=== PATIENT | male | born 1940 | race Caucasian/White ===

== ENCOUNTER 2016-05-15 13:28 | Inpatient (IN) | payer MEDICARE ==
[~2016-05-15] VITALS: Ht 177.8 cm; Wt 119.5 kg
[~2016-05-15 13:28] MED LIST: ALBU8.5H5 INH; ASCO500T8 PO; ASPI-496 PO; CALCIUM PO; CHOL20003 PO; CITA10TA8 PO; CLOB15CR19 TP; CYAN10005 PO; FINA5TAB4 PO; FLUT1DIS IH; GABA100C8 PO; INSU100I11 SC; INSU100I13 SC; INSU300I SC; LACT1CAP37 PO; LORA0.5T PO; LOSA25TA5 PO; MAGNESIUM PO; METAMUCIL PO; METO5TAB2 PO; MOME17SP NS; MULT-658 PO; MYCOLOG CREAM HOMETP; ONDA4TAB13 SL; OXYC-302 PO; RIVA20TA PO; ROSU40TA PO; SULF1TAB23 PO; TADA20TA PO; TAMS0.4C2 PO
[2016-05-15] MEDS ORDERED: LACTATED RINGERS 1,000 ML IV SCH (13:41)
[2016-05-15 13:46] VITALS: BP 147/83
[2016-05-15] MEDS ORDERED: LIDOCAINE 1%, 2ML ONE (13:54)
[2016-05-15] MEDS ORDERED: VANCOMYCIN 1,000 MG ONE (13:56)
[2016-05-15] MEDS ORDERED: TRANEXAMIC ACID 100 MG/ML, 10ML ONE (13:56)
[2016-05-15] MEDS ORDERED: CEFAZOLIN 1,000 MG ONE ×2 (13:57→15:34)
[2016-05-15] MEDS ORDERED: PLEASE ENTER HEIGHT AND WEIGHT MC SCH (14:00)
[2016-05-15] MEDS ORDERED: VANCOMYCIN PER PHARMACY MC PRN (14:00)
[2016-05-15] MEDS ORDERED: ASCO500T12 PO (14:05)
[2016-05-15] MEDS ORDERED: CYAN250013 PO (14:05)
[2016-05-15] MEDS ORDERED: CALC1TAB4 PO (14:05)
[2016-05-15] MEDS ORDERED: CHOL2000 PO (14:05)
[2016-05-15] MEDS ORDERED: UBID100C24 PO (14:06)
[2016-05-15] MEDS ORDERED: VANCOMYCIN 2,200 MG in SODIUM CHLORIDE 0.9% 500 ML IV ONE (14:30)
[2016-05-15] MEDS ORDERED: SCOPOLAMINE PATCH, 1.5MG PATCH.TD72 TD ONE (15:17)
[2016-05-15] MEDS ORDERED: ROCURONIUM 10 MG/ML ONE (15:34)
[2016-05-15] MEDS ORDERED: SUCCINYLCHOLINE 20 MG/ML, 10ML ONE (15:34)
[2016-05-15] MEDS ORDERED: DEXAMETHASONE 4 MG/ML, 5ML ONE (15:34)
[2016-05-15] MEDS ORDERED: PHENYLEPHRINE 10 MG/ML ONE (15:34)
[2016-05-15] MEDS ORDERED: ONDANSETRON 2MG/ML, 2ML ONE (15:34)
[2016-05-15] MEDS ORDERED: PROPOFOL 10 MG/ML, 20ML ONE (15:34)
[2016-05-15] MEDS ORDERED: hydrALAzine 20 MG/ML, 1ML IV PRN (16:30)
[2016-05-15] MEDS ORDERED: FENTANYL PF 100 MCG/2ML IV PRN (16:30)
[2016-05-15] MEDS ORDERED: OXYcodone 5 MG/5 ML ORAL.SOL UDC PO PRN (16:30)
[2016-05-15] MEDS ORDERED: ACETAMINOPHEN 325 MG TABLET PO PRN (16:30)
[2016-05-15] MEDS ORDERED: HYDROmorphone 1 MG/ML, 1ML IV PRN ×2 (16:30→17:30)
[2016-05-15] MEDS ORDERED: LABETALOL 5MG/ML, 20ML IV PRN (16:30)
[2016-05-15] MEDS ORDERED: ONDANSETRON 2MG/ML, 2ML IVPush PRN (16:30)
[2016-05-15] MEDS ORDERED: MIDAZOLAM 1 MG/ML, 2ML IV PRN (16:30)
[2016-05-15] MEDS ORDERED: MEPERIDINE/PF 25MG/0.5ML IVPush PRN (16:30)
[2016-05-15] MEDS ORDERED: PROMETHAZINE 25 MG/ML, 1ML IV PRN (16:30)
[2016-05-15] MEDS ORDERED: ALBUTEROL/IPRATROPIUM 2.5MG/0.5MG, 3 ML NPPB PRN (16:30)
[2016-05-15] MEDS ORDERED: MAGNESIUM HYDROXIDE 8%, 30ML UDC PO PRN (17:30)
[2016-05-15] MEDS ORDERED: METOCLOPRAMIDE 10MG TABLET PO PRN (17:30)
[2016-05-15] MEDS ORDERED: ALUMINUM/MAG/SIMETHICONE 30 ML UDC PO PRN (17:30)
[2016-05-15] MEDS ORDERED: PROMETHAZINE 12.5 MG SUPP PR PRN (17:30)
[2016-05-15] MEDS ORDERED: DIPHENHYDRAMINE 50 MG CAPSULE PO PRN (17:30)
[2016-05-15] MEDS ORDERED: BISACODYL 10 MG SUPP PR PRN (17:30)
[2016-05-15] MEDS: ACETAMINOPHEN 650 MG/20.3 ML UDC PO SCH ×2 (17:30→23:20)
[2016-05-15] MEDS ORDERED: LORazepam 0.5MG TABLET PO PRN (17:30)
[2016-05-15] MEDS ORDERED: SENNA/DOCUSATE TABLET PO PRN (17:30)
[2016-05-15] MEDS ORDERED: ALBUTEROL SULFATE 200 PUFFS/8.5 GR INH INH PRN (17:30)
[2016-05-15] MEDS ORDERED: SCOPOLAMINE PATCH, 1.5MG PATCH.TD72 TD SCH (17:30)
[2016-05-15] MEDS ORDERED: ONDANSETRON 2MG/ML, 2ML IV PRN (17:30)
[2016-05-15] MEDS ORDERED: ONDANSETRON 4 MG TABLET PO PRN (17:30)
[2016-05-15] MEDS ORDERED: OXYcodone 5 MG/5 ML ORAL.SOL UDC ONE (17:34)
[2016-05-15] MEDS ORDERED: ACETAMINOPHEN 650 MG/20.3 ML UDC ONE (17:34)
[2016-05-15] MEDS ORDERED: PROMETHAZINE 25 MG/ML, 1ML ONE (17:44)
[2016-05-15] MEDS ORDERED: TRANEXAMIC ACID 1,500 MG in SODIUM CHLORIDE 0.9% 100 ML IVPB ONE (17:45)
[2016-05-15] MEDS: INSULIN GLARGINE HUM REC ANLOG 100 UNIT SC SCH (21:00)
[2016-05-15] MEDS: SODIUM CHLORIDE 0.9% 1,000 ML IV SCH (21:23)
[2016-05-15] MEDS: OXYcodone IR 5MG TABLET PO PRN (21:57)
[2016-05-15] MEDS: GABAPENTIN 100 MG CAPSULE PO SCH (21:57)
[2016-05-15] MEDS: DOCUSATE 100 MG CAPSULE PO SCH (21:57)
[2016-05-15] MEDS: INSULIN REGULAR 100 UNITS/ML, 3ML VIAL SQ-INSULIN SCH (23:08)
[2016-05-15] MEDS: CEFAZOLIN PMX 2GM/100ML 100 ML IVPB SCH (23:14)
[2016-05-16 00:50] VITALS: BP 117/60
[2016-05-16] MEDS: SODIUM CHLORIDE 0.9% 1,000 ML IV SCH ×3 (02:33→14:10)
[2016-05-16] MEDS: OXYcodone IR 5MG TABLET PO PRN ×4 (02:36→16:17)
[2016-05-16 04:37] VITALS: BP 129/70
[2016-05-16] MEDS: RIVAROXABAN 10 MG TABLET PO SCH (05:46)
[2016-05-16] MEDS: ACETAMINOPHEN 650 MG/20.3 ML UDC PO SCH ×3 (05:46→17:37)
[2016-05-16] MEDS ORDERED: DEXAMETHASONE 4 MG/ML, 1ML IVPush SCH (06:00)
[2016-05-16 06:02] LABS: HEMOGLOBIN 12.3 g/dL (13.7-18.0)
[2016-05-16] MEDS: CEFAZOLIN PMX 2GM/100ML 100 ML IVPB SCH (06:46)
[2016-05-16 07:05] VITALS: BP 148/80
[2016-05-16] MEDS: INSULIN LISPRO 35 UNIT SC SCH ×3 (07:43→16:11)
[2016-05-16] MEDS: ROSUVASTATIN CALCIUM 40 MG HOMEMEDPO SCH (07:44)
[2016-05-16] MEDS: MOMETASONE FUROATE NS SCH (07:44)
[2016-05-16] MEDS: CITALOPRAM 10 MG TABLET PO SCH (08:02)
[2016-05-16] MEDS: INSULIN REGULAR 100 UNITS/ML, 3ML VIAL SQ-INSULIN SCH ×4 (08:02→21:05)
[2016-05-16] MEDS: DOCUSATE 100 MG CAPSULE PO SCH ×2 (08:02→20:56)
[2016-05-16] MEDS: MULTIVITAMINS/MINERALS TABLET PO SCH (08:02)
[2016-05-16] MEDS: TAMSULOSIN 0.4 MG CAP.ER.24H PO SCH (08:02)
[2016-05-16] MEDS ORDERED: LOSARTAN 25MG TABLET PO SCH (09:00)
[2016-05-16 13:20] VITALS: BP 135/76
[2016-05-16 19:41] VITALS: BP 121/75
[2016-05-16] MEDS: GABAPENTIN 100 MG CAPSULE PO SCH (20:56)
[2016-05-16] MEDS: LOSARTAN 25MG TABLET PO SCH (20:56)
[2016-05-16] MEDS: INSULIN GLARGINE HUM REC ANLOG 100 UNIT SC SCH (21:00)
[2016-05-17] MEDS: ACETAMINOPHEN 650 MG/20.3 ML UDC PO SCH ×5 (00:03→23:30)
[2016-05-17 01:08] VITALS: BP 113/72
[2016-05-17] MEDS: SODIUM CHLORIDE 0.9% 1,000 ML IV SCH ×3 (01:28→17:28)
[2016-05-17] MEDS: OXYcodone IR 5MG TABLET PO PRN ×3 (01:43→12:29)
[2016-05-17 05:28] LABS: HEMOGLOBIN 11.8 g/dL (13.7-18.0)
[2016-05-17] MEDS: RIVAROXABAN 10 MG TABLET PO SCH (05:38)
[2016-05-17] MEDS: INSULIN LISPRO 35 UNIT SC SCH ×3 (07:00→16:00)
[2016-05-17 07:07] VITALS: BP 122/74
[2016-05-17] MEDS: INSULIN REGULAR 100 UNITS/ML, 3ML VIAL SQ-INSULIN SCH ×4 (07:41→20:42)
[2016-05-17] MEDS: DOCUSATE 100 MG CAPSULE PO SCH ×2 (07:43→20:43)
[2016-05-17] MEDS: CITALOPRAM 10 MG TABLET PO SCH (07:43)
[2016-05-17] MEDS: MULTIVITAMINS/MINERALS TABLET PO SCH (07:44)
[2016-05-17] MEDS: MOMETASONE FUROATE NS SCH (07:44)
[2016-05-17] MEDS: ROSUVASTATIN CALCIUM 40 MG HOMEMEDPO SCH (07:45)
[2016-05-17] MEDS: TAMSULOSIN 0.4 MG CAP.ER.24H PO SCH ×2 (09:00→12:29)
[2016-05-17] MEDS ORDERED: FINASTERIDE 5 MG TABLET PO SCH (09:00)
[2016-05-17 13:43] VITALS: BP 105/68
[2016-05-17 15:07] LABS: HEMOGLOBIN 11.3 g/dL (13.7-18.0)
[2016-05-17 15:11] LABS: ABG COLLECTION SITE LEFT RADIAL; COLLATERAL CIRCULATION TESTING NORMAL
[2016-05-17 15:21] LABS: BLOOD UREA NITROGEN 34 mg/dL (7-18)
[2016-05-17 15:27] LABS: IS PT STATUS REG ER OR PRE ER? NO
[2016-05-17] MEDS ORDERED: OMNIPAQUE 350 MG/ML, 100ML BOTTLE ONE (17:27)
[2016-05-17] MEDS ORDERED: FUROSEMIDE 20 MG/2 ML IV ONE (18:30)
[2016-05-17 20:00] VITALS: BP 110/68
[2016-05-17] MEDS: LOSARTAN 25MG TABLET PO SCH (20:43)
[2016-05-17] MEDS: GABAPENTIN 100 MG CAPSULE PO SCH (20:43)
[2016-05-17] MEDS: INSULIN GLARGINE HUM REC ANLOG 100 UNIT SC SCH (21:00)
[2016-05-17 23:25] LABS: IS PT STATUS REG ER OR PRE ER? NO
[2016-05-18 03:50] VITALS: BP 127/59
[2016-05-18] MEDS: ACETAMINOPHEN 650 MG/20.3 ML UDC PO SCH ×2 (05:30→11:21)
[2016-05-18 06:19] LABS: HEMOGLOBIN 11.2 g/dL (13.7-18.0)
[2016-05-18 06:22] LABS: BLOOD UREA NITROGEN 41 mg/dL (7-18)
[2016-05-18 06:23] LABS: IS PT STATUS REG ER OR PRE ER? NO
[2016-05-18] MEDS: RIVAROXABAN 10 MG TABLET PO SCH (06:29)
[2016-05-18] MEDS: INSULIN LISPRO 35 UNIT SC SCH ×2 (07:00→10:55)
[2016-05-18 07:19] VITALS: BP 104/66
[2016-05-18] MEDS: MOMETASONE FUROATE NS SCH (09:00)
[2016-05-18] MEDS ORDERED: FLUTICASONE/VILANTEROL 200-25MCG/INH INH SCH (09:00)
[2016-05-18] MEDS: ROSUVASTATIN CALCIUM 40 MG HOMEMEDPO SCH (09:00)
[2016-05-18] MEDS: INSULIN REGULAR 100 UNITS/ML, 3ML VIAL SQ-INSULIN SCH ×2 (09:41→11:19)
[2016-05-18] MEDS: DOCUSATE 100 MG CAPSULE PO SCH (09:42)
[2016-05-18] MEDS: LOSARTAN 25MG TABLET PO SCH (09:42)
[2016-05-18] MEDS: CITALOPRAM 10 MG TABLET PO SCH (09:42)
[2016-05-18] MEDS: MULTIVITAMINS/MINERALS TABLET PO SCH (09:42)
[2016-05-18] MEDS: TAMSULOSIN 0.4 MG CAP.ER.24H PO SCH (09:42)
[2016-05-18] MEDS ORDERED: ACETAMINOPHEN 325 MG TABLET ONE (11:15)
[2016-05-18 13:20] VITALS: BP 102/48
== END 2016-05-18 15:51 | DRG 469 ==
LOC: ORIP 13:28 → 4NOR 18:32 → 4WST 05-17 19:53
PROVIDERS: ADMIT Orthopaedic Surgery Adult Reconstructive Orthopaedic Surgery; ATTEND Orthopaedic Surgery Adult Reconstructive Orthopaedic Surgery
PROC: 0SR903A Replacement of Right Hip Joint with Ceramic Synthetic Substitute, Uncemented, Open Approach (ICD-10-PCS; principal; 2016-05-15 15:30)
DX: M16.11 Unilateral primary osteoarthritis, right hip (principal); J96.01 Acute respiratory failure with hypoxia; I50.23 Acute on chronic systolic (congestive) heart failure; E87.1 Hypo-osmolality and hyponatremia; J98.11 Atelectasis; I12.9 Hypertensive chronic kidney disease with stage 1 through stage 4 chronic kidney disease, or unspecified chronic kidney disease; D64.9 Anemia, unspecified; D72.829 Elevated white blood cell count, unspecified; E11.22 Type 2 diabetes mellitus with diabetic chronic kidney disease; Z96.652 Presence of left artificial knee joint; J45.909 Unspecified asthma, uncomplicated; E11.65 Type 2 diabetes mellitus with hyperglycemia; E78.5 Hyperlipidemia, unspecified; I25.9 Chronic ischemic heart disease, unspecified; I35.0 Nonrheumatic aortic (valve) stenosis; N18.2 Chronic kidney disease, stage 2 (mild); Z79.01 Long term (current) use of anticoagulants; Z86.711 Personal history of pulmonary embolism; Z79.899 Other long term (current) drug therapy; Z88.0 Allergy status to penicillin; E66.01 Morbid (severe) obesity due to excess calories; F32.9 Major depressive disorder, single episode, unspecified
CPT/HCPCS: 36415; 36600; 71010; 71275; 80048; 82803; 82962; 84484; 85014; 85018; 85025; 86850; 86900; 93005; C1713; J0690; J1100; J1170; J1815; J2250; J2405; J2550; J2704; J3010; J3370; Q9967; C1776; J0330; J1940; J2370; J7030; J7040; J7120

== ENCOUNTER 2018-10-27 14:32 | Outpatient (CLI) | payer MEDICARE | END 2018-10-27 23:59 | disposition home or self-care (01) | LOC: CVU 14:32 | PROVIDERS: ATTEND Internal Medicine Cardiovascular Disease | DX: I08.3 Combined rheumatic disorders of mitral, aortic and tricuspid valves (principal); I11.9 Hypertensive heart disease without heart failure; E78.5 Hyperlipidemia, unspecified; I25.2 Old myocardial infarction | CPT/HCPCS: 93306 ==

== ENCOUNTER → 2019-11-12 | Outpatient (CLI) | payer MEDICARE ==
[~2019-11-12] MED LIST changes: +ASCO500T93 PO; +CALC1TAB4 PO; +CHOL2000 PO; -CHOL20003 PO; +CYAN-27 PO; -CYAN10005 PO; +CYAN250013 PO; +GABA-826 PO; -GABA100C8 PO; +LOSA25TA25 PO; -LOSA25TA5 PO; +UBID100C24 PO
== END | disposition home or self-care (01) ==
LOC: CFH 10:50
PROVIDERS: ATTEND Internal Medicine Cardiovascular Disease
DX: I11.9 Hypertensive heart disease without heart failure (principal); I35.0 Nonrheumatic aortic (valve) stenosis
CPT/HCPCS: 93306

== ENCOUNTER 2020-11-03 12:42 | Outpatient (CLI) | payer MEDICARE ==
[~2020-11-03 12:42] MED LIST changes: +ASPI81TA45 PO; +CITA10TA4 PO; +EMPA25TA PO; +ICOS1CAP PO; +KETO15CR17 TP; -LACT1CAP37 PO; +LACT1CAP47 PO; +LEVO25TA4 PO; +LISI5TAB7 PO; +METO25TA91 PO; +Magnesium PO; -OXYC-302 PO; +OXYC1TAB14 PO; +TICA90TA PO; +TORS5TAB4 PO; +TRIA15CR61 TP
== END 2020-11-03 23:59 | disposition home or self-care (01) ==
LOC: CVU 12:42 → RAD 23:59
PROVIDERS: ATTEND Internal Medicine Cardiovascular Disease
DX: I65.23 Occlusion and stenosis of bilateral carotid arteries (principal); K57.30 Diverticulosis of large intestine without perforation or abscess without bleeding; I25.10 Atherosclerotic heart disease of native coronary artery without angina pectoris; I50.41 Acute combined systolic (congestive) and diastolic (congestive) heart failure; I35.8 Other nonrheumatic aortic valve disorders; I31.3 Pericardial effusion (noninflammatory); J43.2 Centrilobular emphysema; K86.89 Other specified diseases of pancreas; N28.1 Cyst of kidney, acquired
CPT/HCPCS: 71250; 74176; 93880

== ENCOUNTER 2020-11-08 07:30 | Inpatient (IN) | payer MEDICARE ==
[~2020-11-08] VITALS: Ht 180.3 cm; Wt 75.0 kg
[~2020-11-08 07:30] MED LIST changes: +OXYC1TAB12 PO; -OXYC1TAB14 PO
[2020-11-15] MEDS ORDERED: ONDANSETRON 2MG/ML, 2ML IV PRN (06:30)
[2020-11-15 06:53] LABS: BASOPHILS % (AUTO) 1 % (0-1); EOSINOPHILS % (AUTO) 2 % (1-7); LYMPHOCYTES % (AUTO) 19 % (22-44); MEAN CORPUSCULAR HEMOGLOBIN 32.8 pg (27.5-34.5); MEAN CORPUSCULAR HGB CONC 33.8 g/dL (33.2-36.2); MONOCYTES % (AUTO) 8 % (2-9); NEUTROPHILS % (AUTO) 71 % (42-75); PLATELET COUNT 227 x10^3/uL (130-400); RED BLOOD COUNT 3.42 x10^6/uL (4.38-5.82); RED CELL DISTRIBUTION WIDTH 14.5 % (9.4-14.8)
[2020-11-15] MEDS ORDERED: RIVA10TA2 PO (06:55)
[2020-11-15] MEDS ORDERED: ROSU40TA PO (06:58)
[2020-11-15] MEDS ORDERED: ICOS1CAP PO (06:59)
[2020-11-15 07:03] VITALS: BP 99/53
[2020-11-15 07:05] LABS: ALANINE AMINOTRANSFERASE 46 U/L (12-78); ALBUMIN 2.8 g/dL (3.4-5.0); ANION GAP 3 mmol/L (5-15); CHLORIDE 111 mmol/L (98-107)
[2020-11-15 07:07] LABS: INTERNATIONAL NORMALIZED RATIO 1.12 (0.93-1.1); PROTHROMBIN TIME 11.9 Seconds (9.6-11.5)
[2020-11-15 07:08] LABS: ALKALINE PHOSPHATASE 84 U/L (45-117); BILIRUBIN,TOTAL 0.7 mg/dL (0.2-1.0); CREATININE 1.42 mg/dL (0.7-1.3); TOTAL PROTEIN 6.5 g/dL (6.4-8.2)
[2020-11-15] MEDS ORDERED: PROTAMINE SULFATE 10 MG/ML, 5ML ONE (07:12)
[2020-11-15] MEDS ORDERED: SUCCINYLCHOLINE 20 MG/ML, 10ML ONE (08:32)
[2020-11-15] MEDS ORDERED: EPINEPHRINE 1 MG/ML, 1ML ONE (08:32)
[2020-11-15] MEDS ORDERED: FENTANYL PF 250 MCG/5ML ONE (08:51)
[2020-11-15] MEDS ORDERED: ROCURONIUM 10MG/ML,5ML ONE (10:14)
[2020-11-15] MEDS ORDERED: HEPARIN 1,000 UNITS/ML, 10ML ONE (10:14)
[2020-11-15] MEDS ORDERED: CEFAZOLIN 1,000 MG ONE ×2 (10:14)
[2020-11-15] MEDS ORDERED: PROPOFOL 10 MG/ML, 20ML ONE (10:14)
[2020-11-15] MEDS ORDERED: ONDANSETRON 2MG/ML, 2ML ONE (10:14)
[2020-11-15] MEDS ORDERED: ACETAMINOPHEN 325 MG TABLET PO PRN (10:30)
[2020-11-15] MEDS ORDERED: KETOCONAZOLE CRM 2%, 15GM TP PRN (10:30)
[2020-11-15] MEDS ORDERED: DEXTROSE 4 GM TAB.CHEW PO PRN (10:30)
[2020-11-15] MEDS ORDERED: DEXTROSE 50%, 50ML SYRINGE IVPush PRN (10:30)
[2020-11-15] MEDS ORDERED: LABETALOL 20 MG/4 ML IVPush PRN (10:30)
[2020-11-15] MEDS ORDERED: RIVAROXABAN 10 MG TABLET PO SCH (10:30)
[2020-11-15] MEDS ORDERED: hydrALAzine 20 MG/ML, 1ML IVPush PRN (10:30)
[2020-11-15] MEDS ORDERED: GLUCAGON 1 MG IM PRN (10:30)
[2020-11-15] MEDS ORDERED: (Fluticasone/Salmeterol** (Advair 100-50 Diskus**) 1 PUFF) INH PRN (10:30)
[2020-11-15] MEDS ORDERED: GABAPENTIN 100 MG CAPSULE PO PRN (10:30)
[2020-11-15] MEDS ORDERED: ALBUTEROL HFA 90 MCG/SPRAY INH PRN (10:30)
[2020-11-15] MEDS ORDERED: TRIAMCINOLONE CRM 0.1%, 454GMS TP PRN (10:30)
[2020-11-15] MEDS: INSULIN LISPRO 100 UNITS/ML, PEN SQ-INSULIN SCH ×2 (11:55→16:00)
[2020-11-15 13:16] VITALS: BP 109/61
[2020-11-15] MEDS: TAMSULOSIN 0.4 MG CAP.ER.24H PO SCH (13:17)
[2020-11-15] MEDS ORDERED: LABETALOL 5MG/ML, 20ML IVPush PRN (14:00)
[2020-11-15 19:06] VITALS: BP 103/52
[2020-11-15] MEDS: RIVAROXABAN 10 MG TABLET PO SCH (20:54)
[2020-11-15] MEDS: TICAGRELOR 90 MG TABLET PO SCH (20:55)
[2020-11-15] MEDS ORDERED: ATORVASTATIN 80 MG TABLET PO SCH (21:00)
[2020-11-15] MEDS ORDERED: INSULIN GLARGINE HUM REC ANLOG SC SCH (21:00)
[2020-11-15] MEDS: SODIUM CHLORIDE FLUSH 10ML SYR IVF SCH (21:05)
[2020-11-16 01:51] VITALS: BP 113/56
[2020-11-16] MEDS: INSULIN LISPRO 100 UNITS/ML, PEN SQ-INSULIN SCH ×2 (07:00→11:00)
[2020-11-16 07:09] VITALS: BP 112/57
[2020-11-16 07:24] LABS: BASOPHILS % (AUTO) 1 % (0-1); EOSINOPHILS % (AUTO) 2 % (1-7); LYMPHOCYTES % (AUTO) 21 % (22-44); MEAN CORPUSCULAR HEMOGLOBIN 32.6 pg (27.5-34.5); MEAN CORPUSCULAR HGB CONC 33.9 g/dL (33.2-36.2); MEAN PLATELET VOLUME 8.1 fL (7.4-10.4); MONOCYTES % (AUTO) 8 % (2-9); NEUTROPHILS % (AUTO) 68 % (42-75); PLATELET COUNT 162 x10^3/uL (130-400); RED BLOOD COUNT 2.78 x10^6/uL (4.38-5.82); RED CELL DISTRIBUTION WIDTH 14.4 % (9.4-14.8)
[2020-11-16 07:29] LABS: ANION GAP 3 mmol/L (5-15); CALCIUM 8.2 mg/dL (8.5-10.1); CHLORIDE 113 mmol/L (98-107); CREATININE 1.25 mg/dL (0.7-1.3)
[2020-11-16] MEDS: TAMSULOSIN 0.4 MG CAP.ER.24H PO SCH (08:42)
[2020-11-16] MEDS: RIVAROXABAN 10 MG TABLET PO SCH (08:42)
[2020-11-16] MEDS: SODIUM CHLORIDE FLUSH 10ML SYR IVF SCH (08:44)
[2020-11-16] MEDS: TICAGRELOR 90 MG TABLET PO SCH (08:55)
[2020-11-16] MEDS ORDERED: (Empagliflozin (Jardiance) 25 MG) PO SCH (09:00)
[2020-11-16] MEDS ORDERED: LISINOPRIL 5 MG TABLET PO SCH (09:00)
[2020-11-16] MEDS ORDERED: LEVOTHYROXINE 25 MCG TABLET PO SCH (09:00)
[2020-11-16] MEDS ORDERED: ASPIRIN 81 MG TABLET EC PO SCH (09:00)
[2020-11-16] MEDS ORDERED: METOPROLOL SUCCINATE 25 MG TAB.ER.24H PO SCH (09:00)
[2020-11-16] MEDS ORDERED: CITALOPRAM 10 MG TABLET PO SCH (09:00)
[2020-11-16] MEDS ORDERED: TORSEMIDE 5 MG TAB PO SCH (09:00)
[2020-11-16 12:43] VITALS: BP 80/42
[2020-11-16 12:50] VITALS: BP 94/55
[2020-11-16 13:54] VITALS: BP 104/48
[2020-11-17] MEDS ORDERED: FINASTERIDE 5 MG TABLET PO SCH (09:00)
== END 2020-11-16 15:18 | disposition home or self-care (01) | DRG 266 ==
LOC: ORIP 11-15 06:01 → 5SO 11-15 13:14
PROVIDERS: ADMIT Internal Medicine Cardiovascular Disease; ATTEND Internal Medicine Cardiovascular Disease
PROC: 02RF3JZ Replacement of Aortic Valve with Synthetic Substitute, Percutaneous Approach (ICD-10-PCS; principal; 2020-11-15 08:00)
DX: I35.0 Nonrheumatic aortic (valve) stenosis (principal); Z00.6 Encounter for examination for normal comparison and control in clinical research program; I50.43 Acute on chronic combined systolic (congestive) and diastolic (congestive) heart failure; I13.0 Hypertensive heart and chronic kidney disease with heart failure and stage 1 through stage 4 chronic kidney disease, or unspecified chronic kidney disease; I42.9 Cardiomyopathy, unspecified; N18.9 Chronic kidney disease, unspecified; E11.22 Type 2 diabetes mellitus with diabetic chronic kidney disease; I25.10 Atherosclerotic heart disease of native coronary artery without angina pectoris; E78.5 Hyperlipidemia, unspecified; N36.8 Other specified disorders of urethra; Z20.822 Contact with and (suspected) exposure to COVID-19
CPT/HCPCS: 33361; 36415; 76937; 80048; 80053; 82962; 85025; 85347; 85610; 86850; 86900; 86923; 87635; 93005; 93306; 93355; 93356; C1760; C1769; C1894; G0378; J0171; J0690; J1644; J2405; J2704; J2720; J3010; J0330; Q9967